=== PATIENT | female | born 1965 | race African-American/Black ===

== ENCOUNTER 2021-08-06 13:03 | Outpatient (CLI) | payer OTHER, SELFPAY | END 2021-08-06 13:04 | disposition home or self-care (01) | LOC: ANHAUDIO 13:07 | PROVIDERS: Visit Provider Otolaryngology | DX: H90.5 Unspecified sensorineural hearing loss (principal) | CPT/HCPCS: 92557; 92567 ==

== ENCOUNTER 2021-09-24 07:33 | Outpatient (RCR) | payer OTHER, SELFPAY | END 2021-09-24 23:59 | disposition home or self-care (01) | LOC: ANHAUDIO 07:33 | PROVIDERS: Visit Provider Otolaryngology | DX: Z46.1 Encounter for fitting and adjustment of hearing aid (principal) | CPT/HCPCS: V5221; V5240 ==